=== PATIENT | female | born 1985 | race Caucasian/White ===

== ENCOUNTER 2018-02-19 20:07 | Emergency (ER) | payer OTHER, MEDICAID ==
[~2018-02-19] VITALS: Ht 165.1 cm; Wt 52.2 kg
[~2018-02-19 20:07] MED LIST: APAP500 PO; CLEOCIN HCL150 MG PO; FLAGYL500 MG PO; HYDROCODON-ACE1 EAC7 PO; HYDROCODONE-APA1 TA1 PO; IBUPROFEN 600600 M1 PO; NOHOMEMEDICATIONS; ONDANSETRON HCL4 M2 PO; PENICILLIN VK250 MG PO; PENICILLIN VK500 M1 PO; ROBAXIN 750 MG750 M1 PO; TYLENOL COLD C1 EAC1; ULTRAM 50MG TAB50 MG PO
[2018-02-19] MEDS ORDERED: PENICILLIN V P500 MG PO (20:46)
[2018-02-19] MEDS ORDERED: NORCO 5-325 TA1 EACH PO (20:46)
[2018-02-19 20:55] VITALS: BP 116/68
== END 2018-02-19 20:56 | disposition home or self-care (01) ==
LOC: M.ERS 20:07
DX: K02.9 Dental caries, unspecified (principal); F17.210 Nicotine dependence, cigarettes, uncomplicated

== ENCOUNTER 2018-03-19 12:36 | Emergency (ER) | payer OTHER, MEDICAID ==
[~2018-03-19] VITALS: Ht 165.1 cm; Wt 54.4 kg
[~2018-03-19 12:36] MED LIST changes: +NORCO 5-325 TA1 EACH PO; +PENICILLIN V P500 MG PO
[2018-03-19 13:45] VITALS: BP 95/64
== END 2018-03-19 13:49 | disposition home or self-care (01) ==
LOC: M.ERS 12:36
DX: S01.01XA Laceration without foreign body of scalp, initial encounter (principal); F17.210 Nicotine dependence, cigarettes, uncomplicated; W01.0XXA Fall on same level from slipping, tripping and stumbling without subsequent striking against object, initial encounter; Y93.89 Activity, other specified; Y92.89 Other specified places as the place of occurrence of the external cause; Y99.8 Other external cause status

== ENCOUNTER 2018-03-26 10:26 | Emergency (ER) | payer OTHER, MEDICAID ==
[~2018-03-26] VITALS: Ht 165.1 cm; Wt 54.4 kg
[2018-03-26 11:29] VITALS: BP 105/75
== END 2018-03-26 11:30 | disposition home or self-care (01) ==
LOC: M.ERS 10:26
DX: S01.91XD Laceration without foreign body of unspecified part of head, subsequent encounter (principal); X58.XXXD Exposure to other specified factors, subsequent encounter; F17.210 Nicotine dependence, cigarettes, uncomplicated

== ENCOUNTER 2019-03-27 21:09 | Emergency (ER) | payer OTHER, MEDICAID ==
[~2019-03-27] VITALS: Ht 165.1 cm; Wt 52.2 kg
[2019-03-27] MEDS ORDERED: PENICILLIN VK250 MG PO (22:20)
[2019-03-27] MEDS ORDERED: NORCO 7.5-3251 EACH PO (22:20)
[2019-03-27] MEDS ORDERED: LIORESAL 10 MG10 MG PO (22:21)
[2019-03-27 22:34] VITALS: BP 123/79
== END 2019-03-27 22:35 | disposition home or self-care (01) ==
LOC: M.ERS 21:09
DX: R68.84 Jaw pain (principal); F17.210 Nicotine dependence, cigarettes, uncomplicated